=== PATIENT | female | born 1985 ===

== ENCOUNTER 2017-02-18 10:25 | Day surgery (SDC) | payer OTHER ==
[2017-02-07 11:06] VITALS: BMI 29.8
[2017-02-18] MEDS ORDERED: Lidocaine 2% Inj (20ml) ONE (11:42)
[2017-02-18] MEDS ORDERED: ceFAZolin IV 1 gm in Dextrose 1 GM/50 ML BAG IVPB ONE (11:43)
[2017-02-18] MEDS ORDERED: Bupivacaine 0.5% Inj(30mL) ONE (11:43)
[2017-02-18] MEDS ORDERED: Midazolam 2 MG/2 ML VIAL ONE (11:54)
[2017-02-18] MEDS ORDERED: Propofol 10 mg/ml Inj (20 ML) ONE (11:54)
[2017-02-18 14:37] VITALS: BP 108/66; PULSE 77; RESP 18; TEMP 97.5; O2SAT 99
--- NOTE | 2017-02-25 12:58 | OP ---
PROCEDURE DATE: 02/18/2017 SURGEON: Dr. Genoveva Mckeon. ANESTHESIOLOGIST: Dr. 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 PROCEDURE: Excision nail matrix and bone, bilateral great toes. DESCRIPTION OF PROCEDURE: The patient is a 31-year-old [place] female who was brought to the opera tin room and placed on the operating room table in supine position. After induction of intravenous sedation agents, a total of 10 mL of 0.5% Marcaine 2% plain lidocaine was infiltrated around the base s of both great toes. Sterile prep and draping ensued. At this time, using a Randal drain for hemo stasis, 2 angular incisions were made on the lateral and medial borders of the posterior nail folds. These flaps were retracted. At this time, the medial and lateral borders of the nail plate were sha rply excised. The matrix was excised off the bone and partial ostectomy was done on the medial and l ateral aspects of the base of the distal phalanx. Copious amounts of sterile antibiotic irrigation w as used to flush the wounds and repaired with 3.0 nylon, dressed with sterile 4 x 4s, Xeroform, Monico and tape. The exact same procedure was carried out on the contralateral side. The patient tolerate d the procedure and anesthesia well with vital signs remaining stable throughout the procedure. The immediate postoperative prognosis is good. Momo Mckeon DPM cc: [id number] TT: 02/25/2017 12:57:47 ting
== END 2017-02-18 16:00 | disposition home or self-care (01) ==
LOC: C.SDS 10:25
PROVIDERS: ATTEND Podiatrist Foot Surgery
DX: M25.774 Osteophyte, right foot (principal); M25.775 Osteophyte, left foot; L60.0 Ingrowing nail
CPT/HCPCS: 11750; 28124; J0690; J2250; J2704; J3010

== ENCOUNTER 2017-07-29 06:26 | Day surgery (SDC) | payer OTHER ==
[2017-02-07 11:06] VITALS: BMI 29.8
[2017-07-29 07:03] VITALS: O2SAT 100
[2017-07-29] MEDS ORDERED: Bupivacaine 0.5% Inj(30mL) ONE (07:41)
[2017-07-29] MEDS ORDERED: Lidocaine 2% Inj (20ml) ONE (07:42)
[2017-07-29] MEDS ORDERED: Lactated Ringer's 1,000 ML IV ONE (07:50)
[2017-07-29] MEDS ORDERED: Midazolam 2 MG/2 ML VIAL ONE (07:51)
[2017-07-29] MEDS ORDERED: Propofol 10 mg/ml Inj (20 ML) ONE (07:51)
[2017-07-29] MEDS ORDERED: ceFAZolin IV 1 gm in Dextrose 1 GM/50 ML BAG IVPB ONE (07:56)
[2017-07-29] MEDS ORDERED: Bacitracin 50,000 UNIT in Sodium Chloride 0.9% Irrig 1,000 ML IR SCH (08:00)
[2017-07-29] MEDS ORDERED: HYDROmorphone 0.5 mg/0.5 ml ISec IVP PRN (08:35)
--- NOTE | 2017-07-29 09:21 | PCM.SURG1 ---
Surgeon's Initial Post Op Note - Surgeon's Notes Surgeon: Dr. Chavarria, DPM Deputy Sheriff Building Guard: Larry De Leon PGY2 Type of Anesthesia: IV Sedation, Local Anesthesia Administered By: Dr. Rod Pre-Operative Diagnosis: Bilateral hallux: 1) distal phalyn dorsal exostosis 2) Ingrown toenail Operative Findings: See dictation. 4-0 nylon Post-Operative Diagnosis: Same as pre-operative Operation Performed: Bilateral hallux 1) exostectomy 2)Partial nail avulsion with matrixectomy Specimen/Specimens Removed: none Estimated Blood Loss: EBL {In ML}: 5 Blood Products Given: N/A Drains Used: No Drains Post-Op Condition: Good Date of Surgery/Procedure: 07/29/17 Time of Surgery/Procedure: 08:30
[2017-07-29 10:21] VITALS: PULSE 74
[2017-07-29 10:55] VITALS: BP 80/52; RESP 18; TEMP 97
--- NOTE | 2017-07-29 20:51 | OP ---
PROCEDURE DATE: 07/29/2017 PREOPERATIVE DIAGNOSES: 1. Left foot hallux exostosis. 2. Right foot hallux exostosis. 3. Left foot medial nail border ingrowing dystrophic toenail. 4. Right foot lateral nail border ingrowing toenail, dystrophic. POSTOPERATIVE DIAGNOSES: 1. Left foot hallux exostosis. 2. Right foot hallux exostosis. 3. Left foot medial nail border ingrowing dystrophic toenail. 4. Right foot lateral nail border ingrowing toenail, dystrophic. PROCEDURES PERFORMED: 1. Bilateral hallux exostectomy. 2. Bilateral partial nail avulsion with matricectomy. PRIMARY SURGEON: Momo Mckeon DPM. INSPECTOR RUBBER STAMP DIE: Dr. Saige De Leon, PGY2 ANESTHESIOLOGIST: Anibal Wallace MD TYPE OF ANESTHESIA: IV sedation with local. INDICATIONS: The patient is a 32-year-old female with the above stated diagnoses. The patient has exhausted all conservative treatment options provided by Dr. Mckeon on an outpatient basis and is now in need of a provisional procedure for bilateral digit issues. The patient signed the surgical consent after careful explanation of risks, benefits, complications and potential alternatives to the proposed surgical procedure. No guarantees were neither given nor employed. All the patient's questions were answered to her satisfaction. PREPARATION: The patient's n.p.o. status was confirmed prior to bringing the patient to the operating room. The patient was brought into the operating room and placed on the operating room table in a supine position. Once IV sedation was confirmed to have been achieved, the patient received a total of 16 mL of a 1:1 mixture of 0.5% Marcaine plain to 1% lidocaine plain in a local block type fashion to the right and left foot, (right foot received 10 mL of the mixture, left foot received 6 mL of the mixture). Once local anesthetic was confirmed to have been achieved, the patient's right and left foot were then prepped and draped in the usual sterile manner. Digital Randal manual tourniquets were applied to the great toes bilaterally and the procedure began. PROCEDURE: Bilateral hallux exostectomy. DESCRIPTION OF PROCEDURE: Attention was then directed to the dorsal surfaces of the great toes bilaterally. At this time, the respective offending nail borders were isolated, her right foot lateral nail border dystrophy and bony prominence noted. Her left foot medial nail border bony exostectomy noted with dystrophic ingrowing toe nail appreciated. At this time, using a #15 blade, a skin incision was made at the apex of the right foot lateral nail fold at 45 degrees. The same incision was made in the left foot medial nail proximal nail fold at 45 degrees. This incision was extended down through subcutaneous tissue layers to the level of bone with care being taken to avoid all vital neurovascular structures. At this time, using #64 shaver blades, the right foot lateral nail fold and left foot medial nail fold were freed of their attachments to the nail plate and nail bed and retracted to allow full visualization of the curvature of the nail plate. At this time, iris scissors were introduced and offending nail borders from both halluces were then freed of their attachments to both the nail bed and proximal nail matrix. The offending nail borders were then excised and passed from the operative field. At this time, the respective nail matrices were resected and passed from the operative field. At the time of excision of the localized nail bed and matrix the respective bony phalanx exostoses were appreciated. A bone rongeur was used to excise exostoses and curettage was used to smooth down any prominent bone that remained. Incision sites were then flushed with copious amounts of sterile saline. The skin was re-approximated using 4-0 nylon in a simple suture type fashion. Surgical sites were then dressed with Xeroform, 4 x 4 gauze, Kerlix, and Dragan bandage. POSTOPERATIVE CONDITION: The patient tolerated the anesthesia and procedures well and was escorted to the recovery room with vital signs stable and neurovascular status intact to both the right and left foot. The patient will follow up with Dr. Mckeon in his office on an outpatient basis. Saige De Leon DPM [facility]
== END 2017-07-29 11:40 | disposition home or self-care (01) ==
LOC: C.SDS 06:26
PROVIDERS: ATTEND Podiatrist Foot Surgery
DX: L60.0 Ingrowing nail (principal); M25.70 Osteophyte, unspecified joint; M20.5X2 Other deformities of toe(s) (acquired), left foot; M20.5X1 Other deformities of toe(s) (acquired), right foot; M89.9 Disorder of bone, unspecified
CPT/HCPCS: 11765; 28124; J0690; J2250; J2704; J3010; J7120

== ENCOUNTER 2017-09-23 06:29 | Day surgery (SDC) | payer OTHER ==
[2017-02-07 11:06] VITALS: BMI 29.8
[2017-09-23] MEDS ORDERED: Bupivacaine HCl 0.5% PF (10 ml) Inj ONE (07:24)
[2017-09-23] MEDS ORDERED: ceFAZolin IV 1 gm in Dextrose 1 GM/50 ML BAG IVPB ONE (07:24)
[2017-09-23] MEDS ORDERED: Lidocaine 2% Inj (20ml) ONE (07:24)
[2017-09-23] MEDS ORDERED: Midazolam 2 MG/2 ML VIAL ONE (07:35)
[2017-09-23] MEDS ORDERED: Propofol 10 mg/ml Inj (20 ML) ONE (07:36)
[2017-09-23] MEDS ORDERED: Lactated Ringer's 1,000 ML IV ONE ×2 (07:40→08:22)
[2017-09-23] MEDS ORDERED: HYDROmorphone 0.5 mg/0.5 ml ISec IVP PRN (08:21)
[2017-09-23] MEDS ORDERED: Oxycodone/Acetaminophen 5/325 mg Tab PO PRN (08:23)
--- NOTE | 2017-09-23 08:30 | PCM.SURG1 ---
Surgeon's Initial Post Op Note - Surgeon's Notes Surgeon: Dr. Chavarria Flood Control Engineer: Dr. Don Yap Type of Anesthesia: IV Sedation, Local Anesthesia Administered By: Dr. Rod Pre-Operative Diagnosis: Right hallux painful granuloma Operative Findings: 4-0 Nylon Post-Operative Diagnosis: same Operation Performed: Right hallux excision of granuloma Specimen/Specimens Removed: softtissue mass from tight hallux Estimated Blood Loss: EBL {In ML}: 2 Blood Products Given: N/A Drains Used: No Drains Post-Op Condition: Good Date of Surgery/Procedure: 09/23/17 Time of Surgery/Procedure: 07:50
[2017-09-23 09:31] VITALS: O2SAT 100
--- NOTE | 2017-09-23 10:21 | RAD ---
PROCEDURE: Right Foot Radiographs. HISTORY: post op foot surgery COMPARISON: None. FINDINGS: BONES: Bone alignment and mineralization are normal. There is no acute displaced fracture or bone destruction. JOINTS: Normal. SOFT TISSUES: There is soft tissue swelling in the great toe with subcutaneous edema. OTHER FINDINGS: None. IMPRESSION: Soft tissue swelling in the great toe with subcutaneous edema. No acute fracture, dislocation or bone destruction.
[2017-09-23 10:34] VITALS: BP 106/72; PULSE 63; RESP 18; TEMP 97.6
--- NOTE | 2017-09-25 16:21 | PCM.OP ---
Operative Report - Operative Report Date of Surgery/Procedure: 09/23/17 Time of Surgery/Procedure: 07:40 Surgeon: Dr. Uribe Counter Help: Dr. Don Yap Anesthesia/Sedation: IV sedation and Local Pre-Operative Diagnosis: Right hallux painful hypertrophic granuloma Post-Operative Diagnosis: same Indication for Surgery: Indications: The patient is a 32 year-old female with the above diagnoses. The patient has exhausted conservative treatment at this time and now requests surgical intervention. The patient signed the consent after careful explanation of risks, benefits, complication and alternatives for surgical procedure. No guarantees were given nor implied. 2 grams of ancef IV were given to the pt hour prior to the procedure. NPO status was confirmed prior to taking pt to the OR. Operative Findings: Preparation: The patient was brought to the operating room and placed on the operating room table in supine position After induction of IV sedation, the patient received a total of 10 mL of 1:1 mixture of 0.5% Marcaine plain and 2% Lidocaine plain in local block fashion to the Right foot. Once local anesthesia was achieved, the right foot was then prepped and draped in usual sterile manner and procedure began. No pneumatic tourniquet was applied. Procedure/Operation Description: Procedure: Right Hallux excision of hypertrophic granuloma. Prior to making an incision, a Randal drain was applied to the right hallux to be served as a tourniquet. Attention was directed to dorsal-medial aspect of right hallux nail border where a hypertrophic granuloma was visually noted. Utilizing a #15 blade a linear longitudinal incision of approximately 1cm was made from proximal end of nail bed medially for adequate closure of skin. Next, utilizing #15 blade, the hypertrophic granuloma measuring volume of 0.7cm x 0.5cm x 0.5cm was excised and was passed from the operative field and was sent for pathology. The remaining tissue of the granuloma was excised utilizing a rongeur. Then, a bovi was utilized to cauterize the site of granuloma. The wound site was irrigated with normal sterile saline.The skin medial to nail bed was reapproximated with a #4-0 Prolene in horizontal mattress suture technique. The Randal drain was removed from the right hallux at this point. The surgical site to right foot were dressed with Xeroform, 4x4, cling and SYBIL bandage. The attending was present during the case. Estimated Blood Loss: <1mL Blood Replaced: None Drains: None Complications: None Specimen: Right hallux granuloma Discharge & Condition: Postoperative Condition: The patient tolerated the anesthesia and procedure well and was escorted to the recovery room with vital signs stable and neurovascular status intact to the Right foot. This patient will follow up with Dr. Uribe
== END 2017-09-23 10:30 | disposition home or self-care (01) ==
LOC: C.OPSURG 06:29
PROVIDERS: ATTEND Podiatrist Foot Surgery
DX: L98.0 Pyogenic granuloma (principal)
CPT/HCPCS: 11421; 73630; 87070; 88304; J0690; J2250; J2704; J3010; J7120